=== PATIENT | female | born 1955 | race African-American/Black ===

== ENCOUNTER 2016-04-27 17:52 | Inpatient (IN) | payer OTHER ==
[~2016-04-27] VITALS: Ht 160 cm; Wt 110.7 kg
[~2016-04-27 17:52] MED LIST: ACETAMINOPHEN-1 EAC1 ORAL; APRESOLINE10 MG ORAL; ASPIR 8181 MG ORAL; ATIVAN0.5 MG ORAL; Atorvastatin ORAL; BENADRYL25 MG ORAL; BENAZEPRIL HCL10 MG ORAL; CARAFATE1 G1 ORAL; CLONIDINE 0.2M0.2 MG PO; CLONIDINE0.1 MG ORAL; COREG12.5 MG ORAL; CYMBALTA30 MG ORAL; FEOSOL325 MG ORAL; FISH OIL CAP1000 MG ORAL; GEMFIBROZIL600 MG ORAL; GLIPIZIDE5 MG ORAL; GLUCOPHAGE500 MG ORAL; IBUPROFEN600 MG ORAL; JANUVIA100 MG ORAL; LEVOTHYROXINE100 MCG ORAL; LEVOTHYROXINE112 MCG ORAL; LEVOTHYROXINE50 MCG ORAL; LEVOTHYROXINE75 MCG ORAL; LIDODERM700 M1 TDERMAL; LISINOPRIL20 MG PO; LOPRESSOR25 M1 ORAL; LORAZEPAM0.5 MG ORAL; LYRICA25 MG ORAL; MEDROL DOSEPAK4 MG ORAL; METFORMIN HCL500 M1 ORAL; METOPROLOL TAR100 M1 ORAL; MIRALAX17 G2 ORAL; NITROSTAT0.4 M1 SL; NORCO 10/3251 EA ORAL; NORVASC10 MG ORAL; PLAVIX75 MG ORAL; PRAVACHOL20 MG ORAL; PROTONIX40 MG ORAL; RESTORIL30 MG ORAL; SIMVASTATIN10 MG ORAL; SIMVASTATIN20 MG ORAL; SOMA350 MG PO; STARLIX120 MG ORAL; STARLIX60 MG ORAL; SYNTHROID25 MCG ORAL; SYNTHROID300 MCG ORAL; SYNTHROID50 MCG ORAL; ZANTAC150 MG ORAL
[2016-04-27 18:15] VITALS: BP 196/95
--- NOTE | 2016-04-27 19:20 | Emergency Room Report ---
History of Present Illness General Chief Complaint: General Complaint Source: Patient Present Illness HPI 61-year-old female presents ED evaluation. Patient states that she's been "blacking out" several times over the past month. Patient states she was seen in ER few weeks ago and was discharged. Patient states the blackouts or continuing. Patient states she had a episode today and was found on the ground. Upon arrival patient states she feels okay. There is any headaches, blurry vision, nausea or vomiting. Denies chest pain or shortness of breath. Denies fevers chills. Denies smoking or drug use. No other aggravating relieving factors. Denies any other associated symptoms Allergies: Coded Allergies: NO KNOWN ALLERGIES (Unverified Allergy, Unknown, 04/28/15) Patient History Past Medical History: asthma, COPD, CVA/TIA Past Surgical History: none Pertinent Family History: none Social History: Denies: alcohol use, drug use, smoking Now: No Immunizations: UTD Reviewed Nursing Documentation: PMH: Agreed, PSxH: Agreed Nursing Documentation-PMH Hx Cardiac Problems: Yes - hypothyroidism s/p removal of thyroid; [place] 2007, 2010 Hx Hypertension: Yes Hx Asthma: Yes Hx COPD: Yes Hx Diabetes: Yes Hx Cancer: No Hx Gastrointestinal Problems: Yes Hx Neurological Problems: Yes Hx Cerebrovascular Accident: Yes - 06/22/2014 Review of Systems All Other Systems: negative except mentioned in HPI Physical Exam Vital Signs Date Time Temp Pulse Resp B/P Pulse Ox O2 Delivery O2 Flow Rate FiO2 04/27/16 18:04 97.9 89 20 158/118 98 Room Air Sp02 EP Interpretation: reviewed, normal General Appearance: alert, GCS 15, non-toxic, obese Head: normocephalic, atraumatic Eyes: bilateral eye PERRL, bilateral eye normal inspection ENT: hearing grossly normal, normal pharynx, no angioedema, normal voice Neck: full range of motion, supple/symm/no masses Respiratory: chest non-tender, lungs clear, normal breath sounds, speaking full sentences Cardiovascular #1: regular rate, rhythm, no edema Cardiovascular #2: 2+ carotid (R), 2+ carotid (L), 2+ radial (R), 2+ radial (L) , 2+ dorsalis pedis (R), 2+ dorsalis pedis (L) Gastrointestinal: normal bowel sounds, non tender, soft, non-distended, no guarding, no rebound Rectal: deferred Genitourinary: normal inspection, no CVA tenderness Musculoskeletal: back normal, gait/station normal, normal range of motion, non- tender Neurologic: alert, oriented x3, responsive, motor strength/tone normal, sensory intact, speech normal Psychiatric: judgement/insight normal, memory normal, mood/affect normal, no suicidal/homicidal ideation Reflexes: 3+ bicep (R), 3+ bicep (L), 3+ tricep (R), 3+ tricep (L), 3+ knee (R) , 3+ knee (L) Skin: normal color, no rash, warm/dry, well hydrated Lymphatic: no adenopathy Medical Decision Making Diagnostic Impression: Primary Impression: Syncope Qualified Codes: R55 - Syncope and collapse Additional Impression: CHF exacerbation Qualified Codes: I50.9 - Heart failure, unspecified ER Course Hospital Course 61-year-old F presents ED s/p syncopal episode. Differential diagnoses include: [place]/unstable angina, arrythmia, dehydration, CVA/ TIA Clinical course Patient placed on stretcher. on front desk monitor. After initial history and physical I ordered labs, EKG, chest x-ray, IVFs, CT Brain labs reviewed- no leukocytosis, hemoglobin/hematocrit ok, electrolytes okay, troponins negative, BNP elevated EKG- NSR Chest x-ray- cardiomegaly CT brain-unremarkable lasix given Case discussed with Dr. stout and he agreed to accept the patient to his service for further care and support I. I feel this is a highly complex case requiring extensive working including EKG/Rhythm strip, Xray/CT/US, Blood/urine lab work, repeat exams while in ED, and administration of strong opiates/narcotics for pain control, admission to hospital or close patient follow up. Diagnosis - syncope, chf exacerbation admitted to telemetry in serious condition Labs Test 04/27/16 19:45 04/27/16 19:52 White Blood Count 10.0 K/UL (4.8-10.8) Red Blood Count 4.30 M/UL (4.20-5.40) Hemoglobin 11.2 G/DL (12.0-16.0) Hematocrit 37.3 % (37.0-47.0) Mean Corpuscular Volume 87 FL (80-99) Mean Corpuscular Hemoglobin 26.1 PG (27.0-31.0) Mean Corpuscular Hemoglobin Concent 30.1 G/DL (32.0-36.0) Red Cell Distribution Width 13.8 % (11.6-14.8) Platelet Count 368 K/UL (150-450) Mean Platelet Volume 7.1 FL (6.5-10.1) Neutrophils (%) (Auto) 60.5 % (45.0-75.0) Lymphocytes (%) (Auto) 28.6 % (20.0-45.0) Monocytes (%) (Auto) 7.2 % (1.0-10.0) Eosinophils (%) (Auto) 2.3 % (0.0-3.0) Basophils (%) (Auto) 1.4 % (0.0-2.0) Sodium Level 139 mEQ/L (135-145) Potassium Level 4.2 mEQ/L (3.4-4.9) Chloride Level 100 mEQ/L (98-107) Carbon Dioxide Level 24 mEQ/L (20-30) Anion Gap 15 (5-15) Blood Urea Nitrogen 11 mg/dL (7-23) Creatinine 0.6 mg/dL (0.5-0.9) Estimat Glomerular Filtration Rate > 60 mL/min (>60) Glucose Level 169 mg/dL (74-106) Calcium Level 9.2 mg/dL (8.6-10.2) Total Bilirubin < 0.2 mg/dL (0.0-1.2) Aspartate Amino Transf (AST/SGOT) 17 U/L (5-40) Alanine Aminotransferase (ALT/SGPT) 16 U/L (3-33) Alkaline Phosphatase 119 U/L (35-104) Total Creatine Kinase 55 U/L (26-140) Creatine Kinase MB 1.5 ng/mL (< 3.8) Creatine Kinase MB Relative Index 2.7 Troponin I < 0.30 ng/mL (<=0.30) Pro-B-Type Natriuretic Peptide 1270 pg/mL (0-125) Total Protein 7.0 g/dL (6.6-8.7) Albumin 3.4 g/dL (3.5-5.2) Globulin 3.6 g/dL Albumin/Globulin Ratio 0.9 (1.0-2.7) Urine Color Yellow Urine Appearance Clear Urine pH 6 (4.5-8.0) Urine Specific [place] 1.015 (1.005-1.035) Urine Protein 4+ (NEGATIVE) Urine Glucose (UA) 1+ (NEGATIVE) Urine Ketones Negative (NEGATIVE) Urine Occult Blood 1+ (NEGATIVE) Urine Nitrite Negative (NEGATIVE) Urine Bilirubin Negative (NEGATIVE) Urine Urobilinogen Normal MG/DL (0.0-1.0) Urine Leukocyte Esterase 2+ (NEGATIVE) Urine RBC 0-2 /HPF (0 - 2) Urine WBC 2-4 /HPF (0 - 2) Urine Squamous Epithelial Cells Occasional /LPF Urine Bacteria Many /HPF (NONE) EKG Diagnostic Results Rate: normal Rhythm: NSR ST Segments: no acute changes ASA given to the pt in ED: No Rhythm Strip Diag. Results EP Interpretation: yes Rhythm: NSR, no PVC's, no ectopy Chest X-Ray Diagnostic Results EP Interpretation: Yes Findings: no consolidation, no effusion, no pneumothorax, no acute cardiopulmonary disease, other - cardiomegaly Number of Views: 1 CT/MRI/US Diagnostic Results CT/MRI/US Diagnostic Results : Imaging Test Ordered: CT head Impression no acute process Last Vital Signs Date Time Temp Pulse Resp B/P Pulse Ox O2 Delivery O2 Flow Rate FiO2 04/27/16 18:04 97.9 89 20 158/118 98 Room Air Status: improved Disposition: ADMITTED INPATIENT Condition: Serious Referrals: [facility] (PCP) BONNIE LEYVA M.D. Apr 27, 2016 19:20
[2016-04-27 19:57] LABS: BASOPHILS % (AUTO) 1.4 % (0.0-2.0); EOSINOPHILS % (AUTO) 2.3 % (0.0-3.0); LYMPHOCYTES % (AUTO) 28.6 % (20.0-45.0); MEAN CORPUSCULAR HEMOGLOBIN 26.1 PG (27.0-31.0); MEAN CORPUSCULAR HGB CONC 30.1 G/DL (32.0-36.0); MEAN CORPUSCULAR VOLUME 87 FL (80-99); MEAN PLATELET VOLUME 7.1 FL (6.5-10.1); MONOCYTES % (AUTO) 7.2 % (1.0-10.0); NEUTROPHILS % (AUTO) 60.5 % (45.0-75.0); PLATELET COUNT 368 K/UL (150-450); RED CELL DISTRIBUTION WIDTH 13.8 % (11.6-14.8)
[2016-04-27 20:07] LABS: APPEARANCE,URINE CLEAR; KETONES,URINE NEGATIVE (NEGATIVE); LEUKOCYTE ESTERASE ,URINE 2+ (NEGATIVE); NITRITE,URINE NEGATIVE (NEGATIVE); PH,URINE 6 (4.5-8.0); PROTEIN,URINE 4+ (NEGATIVE); UROBILINOGEN,URINE NORMAL MG/DL (0.0-1.0)
[2016-04-27 20:10] VITALS: BP 168/94
[2016-04-27 20:16] LABS: ALANINE AMINOTRANSFERASE 16 U/L (3-33); ALBUMIN/GLOBULIN RATIO 0.9 (1.0-2.7); ANION GAP 15 (5-15); ASPARTATE AMINO TRANSFERASE 17 U/L (5-40); CALCIUM 9.2 mg/dL (8.6-10.2); CARBON DIOXIDE 24 mEQ/L (20-30); CHLORIDE 100 mEQ/L (98-107); CREATININE 0.6 mg/dL (0.5-0.9); GLOMERULAR FILTRATION RATE > 60 mL/min (>60); HEMOLYSIS 5; POTASSIUM 4.2 mEQ/L (3.4-4.9); SODIUM 139 mEQ/L (135-145); TROPONIN I < 0.30 ng/mL (<=0.30)
[2016-04-27 20:17] LABS: BACTERIA,URINE MANY /HPF; RBC,URINE 0-2 /HPF (0 - 2); SQUAMOUS EPITHELIAL CELL,UR OCCASIONAL /LPF (NONE/OCC)
[2016-04-27 20:27] LABS: CKMB 1.5 ng/mL (< 3.8)
[2016-04-27] MEDS ORDERED: DuoNeb 0.5-3(2.5)mg/3ml neb HHN PRN (21:45)
[2016-04-27] MEDS ORDERED: Miralax 17gm pkt ORAL PRN (21:45)
[2016-04-27] MEDS ORDERED: Diltiazem 25mg/5ml IV PRN (21:45)
[2016-04-27] MEDS ORDERED: Ketorolac 30mg Inj IV PRN (21:45)
[2016-04-27] MEDS ORDERED: Nitroglycerin Subl 0.4mg tab (Bottle Of 25) SL PRN ×2 (21:45)
[2016-04-27] MEDS ORDERED: Enalaprilat 2.5mg/2ml Inj IV PRN (21:45)
[2016-04-27 22:47] VITALS: BP 167/87
[2016-04-27] MEDS ORDERED: Heparin 5000 units/ml inj SUBQ SCH (23:00)
[2016-04-27 23:44] VITALS: BP 153/82
[2016-04-28] VITALS (7 sets, daily range): BP systolic 133–171; BP diastolic 80–91
[2016-04-28] MEDS: Morphine Sulfate 2mg/ml Inj IVP PRN ×5 (01:40→22:53)
[2016-04-28] MEDS: Heparin 5000 units/ml inj SUBQ SCH ×3 (06:28→22:45)
[2016-04-28] MEDS: NovoLOG Insulin Flexpen SUBQ SCH ×4 (06:29→21:37)
[2016-04-28 07:15] LABS: BASOPHILS % (AUTO) 1.7 % (0.0-2.0); EOSINOPHILS % (AUTO) 2.6 % (0.0-3.0); LYMPHOCYTES % (AUTO) 36.6 % (20.0-45.0); MEAN CORPUSCULAR HEMOGLOBIN 27.4 PG (27.0-31.0); MEAN CORPUSCULAR HGB CONC 31.1 G/DL (32.0-36.0); MEAN CORPUSCULAR VOLUME 88 FL (80-99); MEAN PLATELET VOLUME 7.2 FL (6.5-10.1); MONOCYTES % (AUTO) 7.3 % (1.0-10.0); NEUTROPHILS % (AUTO) 51.8 % (45.0-75.0); PLATELET COUNT 332 K/UL (150-450); PROTHROMBIN TIME 9.7 SEC (9.30-11.50); RED BLOOD COUNT 3.92 M/UL (4.20-5.40); RED CELL DISTRIBUTION WIDTH 13.4 % (11.6-14.8); WHITE BLOOD COUNT 9.1 K/UL (4.8-10.8)
[2016-04-28 07:34] LABS: TROPONIN I < 0.30 ng/mL (<=0.30)
[2016-04-28 07:36] LABS: CHOLESTEROL 199 mg/dL (< 200); CHOLESTEROL/HDL RATIO 4.3 (3.3-4.4); CRP QUANT < 0.3 mg/dL (< 0.5); HEMOLYSIS 2; LDL CHOLESTEROL (CALC.) 100 mg/dL (60-99)
[2016-04-28] MEDS: Sucralfate 1gm tab ORAL SCH ×4 (08:14→21:30)
[2016-04-28] MEDS: Lyrica 25mg cap ORAL SCH ×3 (08:16→18:17)
[2016-04-28] MEDS: HydrALAZINE 25mg tab ORAL SCH ×2 (08:17→21:30)
[2016-04-28] MEDS: Aspirin EC 81mg tab ORAL SCH (08:17)
[2016-04-28] MEDS ORDERED: Aspirin Baby 81mg ORAL SCH (09:00)
--- NOTE | 2016-04-28 10:41 | Diagnostic Imaging Report ---
Indications: SYNCOPE Technique: Continuous helical CT imaging of the brain was performed with automatic exposure control on a Siemens sensation [address] scanner. Axial and coronal images were reconstructed at 5 mm slice thickness and interval. CTDI volume(s): 70 mGy Total DLP: 1340 mGy-cm Findings: Comparison: 09/03/2015 Chronic microvascular ischemic changes in the bilateral screw periventricular white matter extending into the bilateral internal and external capsules, diffuse atrophy are unchanged.. No evidence of mass or hemorrhage, other attenuation abnormality, mass effect, midline shift, hydrocephalus or increased intracranial pressure. Bone window images are unremarkable. Visualized paranasal sinuses and mastoid air cells are clear. IMPRESSION: No evidence of acute intracranial pathology, unchanged Stable chronic changes as described. This correlates with Dr. Reis's preliminary report. The CT scanner at [facility] is accredited by the [employer] and the scans are performed using protocols designed to limit radiation exposure to as low as reasonably achievable to attain images of sufficient resolution adequate for diagnostic evaluation.
--- NOTE | 2016-04-28 16:04 | History and Physical ---
History of Present Illness General Date patient seen: Apr 28, 2016 Reason for Hospitalization: General Complaint Present Illness HPI 61-year-old female with multiple medical ans social issues presented to ED for CC of "blacking out" several times over the past month. Patient states she was seen in ER few weeks ago and was discharged. There is no complain of headaches, blurry vision, nausea or vomiting. Denies chest pain or shortness of breath. Denies fevers chills. Denies smoking or drug use. Patient admitted to evaluate her recurrent syncopal episode Allergies: Coded Allergies: NO KNOWN ALLERGIES (Unverified Allergy, Unknown, 04/28/15) Medication History Scheduled Amlodipine Besylate (Norvasc), 10 MG ORAL DAILY Aspirin* (Aspir 81*), 81 MG ORAL DAILY, (Reported) Benazepril Hcl* (Benazepril Hcl*), 40 MG ORAL DAILY Carisoprodol* (Soma*), 350 MG PO THREE TIMES A DAY, (Reported) Clonidine HCl (Clonidine HCl), 0.2 MG PO TID, (Reported) Clopidogrel Bisulfate* (Plavix*), 75 MG ORAL DAILY, (Reported) Duloxetine Hcl* (Cymbalta*), 30 MG ORAL DAILY, (Reported) Ferrous Sulfate (Feosol), 325 MG ORAL BID Fish Oil (Fish Oil 1,000 mg Capsule), 1,000 MG ORAL DAILY Glipizide* (Glipizide*), 5 MG ORAL BIDAC Hydralazine HCl (Hydralazine HCl), 25 MG ORAL BID Levothyroxine Sodium (Synthroid), 50 MCG ORAL DAILY, (Reported) Levothyroxine Sodium* (Levothyroxine Sodium*), 100 MCG ORAL DAILY@0630 Levothyroxine Sodium* (Levothyroxine Sodium*), 112 MCG ORAL DAILY@0630 Lidocaine (Lidoderm), 1 PATCH TDERMAL DAILY Lorazepam* (Lorazepam*), 0.5 MG ORAL EVERY 6 HOURS, (Reported) Metformin Hcl* (Glucophage*), 500 MG ORAL TID Metformin Hcl* (Metformin Hcl*), 500 MG ORAL TWICE A DAY, (Reported) Metoprolol Tartrate (Metoprolol Tartrate), 25 MG ORAL EVERY 12 HOURS, (Reported) Metoprolol Tartrate (Metoprolol Tartrate), 50 MG ORAL EVERY 12 HOURS Nateglinide* (Starlix*), 60 MG ORAL THREE TIMES A DAY Pantoprazole* (Protonix*), 40 MG ORAL DAILY, (Reported) Pregabalin (Lyrica), 25 MG ORAL THREE TIMES A DAY Simvastatin (Zocor), 10 MG ORAL BEDTIME, (Reported) Sucralfate* (Carafate*), 1 GM ORAL FOUR TIMES A DAY Temazepam (Restoril*), 30 MG ORAL BEDTIME, (Reported) [Atorvastatin], 40 MG ORAL BEDTIME Scheduled PRN Diphenhydramine Hcl* (Benadryl*), 25 MG ORAL Q6H PRN for Itching Hydrocodone/Acetaminophen (Hydrocodon-Acetaminophn 10-325), 1 TAB ORAL Q4H PRN for For Pain, (Reported) Lorazepam* (Ativan*), 2 MG ORAL THREE TIMES A DAY PRN for For Anxiety, (Reported ) Nitroglycerin (Nitrostat), 0.4 MG SL .Q5M X 3 DOSES PRN for Prn Chest Pain Discontinued Medications Acetaminophen With Codeine (T#3) (Tylenol #3 Tab*), 1 TAB ORAL EVERY 6 HOURS PRN for For Pain Discontinued Reason: Therapy completed Benazepril Hcl* (Benazepril Hcl*), Unknown Dose ORAL DAILY, (Reported) Discontinued Reason: Therapy completed Ibuprofen* (Motrin*), 600 MG ORAL THREE TIMES A DAY Discontinued Reason: Therapy completed Levothyroxine Sodium (Synthroid), 500 MCG ORAL DAILY, (Reported) Discontinued Reason: Therapy completed Temazepam (Restoril*), 30 MG ORAL BEDTIME, (Reported) Discontinued Reason: Therapy completed Patient History Healthcare decision maker Resuscitation status Full Code Advanced Directive on File Past Medical/Surgical History Past Medical/Surgical History: (1) Diabetic nephropathy (2) Hypothyroidism (3) Cerebral vascular disease (4) Diabetes Review of Systems Constitutional: Reports: weakness Cardiovascular: Reports: chest pain All Other Systems: negative except mentioned in HPI Physical Exam General Appearance: WD/WN, no apparent distress Lines, tubes and drains: peripheral, central line HEENT: normocephalic, atraumatic Neck: non-tender, supple Respiratory/Chest: chest wall non-tender, lungs clear Cardiovascular/Chest: normal peripheral pulses, normal rate Abdomen: normal bowel sounds, non tender Genitourinary/Rectal: normal genital exam Extremities: normal range of motion Skin Exam: normal pigmentation Last 24 Hour Vital Signs Date Time Temp Pulse Resp B/P Pulse Ox O2 Delivery O2 Flow Rate FiO2 04/28/16 14:16 97.0 04/28/16 14:16 97.0 04/28/16 12:38 101 133/80 04/28/16 11:54 97.0 106 18 171/91 98 Room Air 04/28/16 09:50 105 20 Room Air 04/28/16 08:17 155/80 04/28/16 08:17 109 155/80 04/28/16 08:16 97.0 109 20 155/80 97 Room Air 04/28/16 08:15 155/80 04/28/16 08:00 107 04/28/16 04:30 98.0 96 20 158/80 100 04/28/16 04:00 99 04/28/16 01:00 98.2 89 15 161/82 100 Room Air 04/28/16 00:45 98.2 89 15 157/89 100 Room Air 04/28/16 00:45 98.2 89 15 157/89 100 Room Air 04/28/16 00:00 91 04/27/16 23:44 98.1 91 15 153/82 100 Room Air 04/27/16 23:33 90 18 Room Air 04/27/16 22:47 94 16 167/87 100 Room Air 04/27/16 20:10 86 11 168/94 100 Room Air 04/27/16 18:15 97.7 91 15 196/95 100 Room Air 04/27/16 18:04 97.9 89 20 158/118 98 Room Air Intake and Output 04/27/16 04/28/16 19:00 07:00 Output Total 2500 ml Balance -2500 ml Output Urine Total 2500 ml # Voids 1 Laboratory Tests Test 04/27/16 19:45 04/27/16 19:52 04/28/16 06:20 White Blood Count 10.0 K/UL (4.8-10.8) 9.1 K/UL (4.8-10.8) Red Blood Count 4.30 M/UL (4.20-5.40) 3.92 M/UL (4.20-5.40) L Hemoglobin 11.2 G/DL (12.0-16.0) L 10.7 G/DL (12.0-16.0) L Hematocrit 37.3 % (37.0-47.0) 34.5 % (37.0-47.0) L Mean Corpuscular Volume 87 FL (80-99) 88 FL (80-99) Mean Corpuscular Hemoglobin 26.1 PG (27.0-31.0) L 27.4 PG (27.0-31.0) Mean Corpuscular Hemoglobin Concent 30.1 G/DL (32.0-36.0) L 31.1 G/DL (32.0-36.0) L Red Cell Distribution Width 13.8 % (11.6-14.8) 13.4 % (11.6-14.8) Platelet Count 368 K/UL (150-450) 332 K/UL (150-450) Mean Platelet Volume 7.1 FL (6.5-10.1) 7.2 FL (6.5-10.1) Neutrophils (%) (Auto) 60.5 % (45.0-75.0) 51.8 % (45.0-75.0) Lymphocytes (%) (Auto) 28.6 % (20.0-45.0) 36.6 % (20.0-45.0) Monocytes (%) (Auto) 7.2 % (1.0-10.0) 7.3 % (1.0-10.0) Eosinophils (%) (Auto) 2.3 % (0.0-3.0) 2.6 % (0.0-3.0) Basophils (%) (Auto) 1.4 % (0.0-2.0) 1.7 % (0.0-2.0) Sodium Level 139 mEQ/L (135-145) Potassium Level 4.2 mEQ/L (3.4-4.9) Chloride Level 100 mEQ/L (98-107) Carbon Dioxide Level 24 mEQ/L (20-30) Anion Gap 15 (5-15) Blood Urea Nitrogen 11 mg/dL (7-23) Creatinine 0.6 mg/dL (0.5-0.9) Estimat Glomerular Filtration Rate > 60 mL/min (>60) Glucose Level 169 mg/dL (74-106) H Calcium Level 9.2 mg/dL (8.6-10.2) Total Bilirubin < 0.2 mg/dL (0.0-1.2) Aspartate Amino Transf (AST/SGOT) 17 U/L (5-40) Alanine Aminotransferase (ALT/SGPT) 16 U/L (3-33) Alkaline Phosphatase 119 U/L (35-104) H Total Creatine Kinase 55 U/L (26-140) Creatine Kinase MB 1.5 ng/mL (< 3.8) Creatine Kinase MB Relative Index 2.7 Troponin I Pending < 0.30 ng/mL (<=0.30) Pro-B-Type Natriuretic Peptide 1270 pg/mL (0-125) H Total Protein 7.0 g/dL (6.6-8.7) Albumin 3.4 g/dL (3.5-5.2) L Globulin 3.6 g/dL Albumin/Globulin Ratio 0.9 (1.0-2.7) L Urine Color Yellow Urine Appearance Clear Urine pH 6 (4.5-8.0) Urine Specific [place] 1.015 (1.005-1.035) Urine Protein 4+ (NEGATIVE) H Urine Glucose (UA) 1+ (NEGATIVE) H Urine Ketones Negative (NEGATIVE) Urine Occult Blood 1+ (NEGATIVE) H Urine Nitrite Negative (NEGATIVE) Urine Bilirubin Negative (NEGATIVE) Urine Urobilinogen Normal MG/DL (0.0-1.0) Urine Leukocyte Esterase 2+ (NEGATIVE) H Urine RBC 0-2 /HPF (0 - 2) Urine WBC 2-4 /HPF (0 - 2) Urine Squamous Epithelial Cells Occasional /LPF Urine Bacteria Many /HPF (NONE) H Prothrombin Time 9.7 SEC (9.30-11.50) Prothromb Time International Ratio 1.0 (0.9-1.1) Activated Partial Thromboplast Time 27 SEC (23-33) C-Reactive Protein, Quantitative < 0.3 mg/dL (< 0.5) Triglycerides Level 264 mg/dL (< 150) H Cholesterol Level 199 mg/dL (< 200) LDL Cholesterol 100 mg/dL (60-99) H HDL Cholesterol 46 mg/dL (> 60) Cholesterol/HDL Ratio 4.3 (3.3-4.4) Thyroid Stimulating Hormone (TSH) 4.280 uIU/mL (0.300-4.500) Microbiology Date/Time Source Procedure Growth Status 04/27/16 19:52 Urine,Clean Catch Urine Culture - Preliminary Resulted Height (Feet): 5 Height (Inches): 3.00 Weight (Pounds): 221 Medications Current Medications Medications (Trade) Dose Ordered Sig/Sky Route PRN Reason Start Time Stop Time Status Last Admin Dose Admin Acetaminophen (Tylenol) 650 mg Q4H PRN ORAL FEVER 04/27/16 21:45 05/27/16 21:44 Albuterol/ Ipratropium (DuoNeb 0.5-3(2.5)mg/3ml) 3 ml Q4H PRN HHN Shortness of Breath 04/27/16 21:45 05/02/16 21:44 Amlodipine Besylate (Norvasc) 10 mg DAILY ORAL 04/28/16 09:00 05/28/16 08:59 04/28/16 08:17 Aspirin (Ecotrin) 81 mg DAILY ORAL 04/28/16 09:00 05/28/16 08:59 04/28/16 08:17 Benazepril HCl (Lotensin) 40 mg DAILY ORAL 04/28/16 09:00 05/28/16 08:59 04/28/16 08:15 Clopidogrel Bisulfate (Plavix) 75 mg DAILY ORAL 04/28/16 09:00 05/28/16 08:59 04/28/16 08:15 Dextrose (Dextrose 50%) STAT PRN IV Hypoglycemia 04/27/16 21:45 05/27/16 21:44 Diltiazem HCl (Cardizem) 10 mg Q1H PRN IV heart rate more than 120, 04/27/16 21:45 05/27/16 21:44 Duloxetine HCl (Cymbalta) 60 mg DAILY ORAL 04/29/16 09:00 05/29/16 08:59 Enalaprilat (Vasotec) 2.5 mg Q6H PRN IV sbp more than 160 04/27/16 21:45 05/27/16 21:44 Ferrous Sulfate (Feosol) 325 mg BID ORAL 04/28/16 09:00 05/28/16 08:59 04/28/16 08:15 Gabapentin (Neurontin) 200 mg THREE TIMES A DAY ORAL 04/28/16 18:00 05/28/16 17:59 Heparin Sodium (Porcine) (Heparin 5000 units/ml) 5,000 units EVERY 8 HOURS SUBQ 04/28/16 06:00 05/28/16 05:59 04/28/16 13:18 Hydralazine HCl (Apresoline) 25 mg BID@0900,2100 ORAL 04/28/16 09:00 05/28/16 08:59 04/28/16 08:17 Insulin Aspart (NovoLOG) BEFORE MEALS AND HS SUBQ 04/28/16 06:30 05/28/16 06:29 04/28/16 11:30 Levothyroxine Sodium (Synthroid) 50 mcg DAILY@0630 ORAL 04/28/16 06:30 05/28/16 06:29 04/28/16 06:25 Morphine Sulfate (Morphine Sulfate) 2 mg Q4H PRN IVP severe Pain (Pain Scale 7-10) 04/27/16 21:45 05/04/16 21:44 04/28/16 13:49 Nitroglycerin (Ntg) 0.4 mg Q5M PRN SL Prn Chest Pain 04/27/16 21:45 05/27/16 21:44 Ondansetron HCl (Zofran) 4 mg Q6H PRN IVP Nausea & Vomiting 04/27/16 21:45 05/27/16 21:44 Pantoprazole (Protonix) 40 mg DAILY ORAL 04/28/16 09:00 05/28/16 08:59 04/28/16 08:15 Polyethylene Glycol (Miralax) 17 gm DAILYPRN PRN ORAL Constipation 04/27/16 21:45 05/27/16 21:44 Pregabalin (Lyrica) 25 mg THREE TIMES A DAY ORAL 04/28/16 09:00 05/28/16 08:59 04/28/16 13:17 Sucralfate (Carafate) 1 gm FOUR TIMES A DAY ORAL 04/28/16 09:00 05/28/16 08:59 04/28/16 13:16 Temazepam (Restoril) 15 mg HSPRN PRN ORAL Insomnia 04/27/16 21:45 05/04/16 21:44 04/28/16 01:40 Assessment/Plan Problem List: (1) Acute encephalopathy ICD Codes: G93.40 - Encephalopathy, unspecified SNOMED: 2161111 (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 ALMAZ HANNAH Apr 28, 2016 16:04
--- NOTE | 2016-04-28 20:27 | Consultation ---
Consult Note Consult Note ID Dic # [id number] SRUTHI TORIBIO M.D. Apr 28, 2016 20:27
--- NOTE | 2016-04-28 20:46 | Cardiology Report ---
APPROVED REPORT EXAM: Two-dimensional and M-mode echocardiogram with Doppler and color Doppler. INDICATION Left Ventricular Function M-Mode DIMENSIONS IVSd2.7 (0.7-1.1cm)Left Atrium (MM)3.3 (1.6-4.0cm) LVDd3.0 (3.5-5.6cm)Aortic Root3.6 (2.0-3.7cm) PWd1.4 (0.7-1.1cm)Aortic Cusp Exc.1.5 (1.5-2.0cm) LVDs2.4 (2.5-4.0cm) PWs1.4 cm Technically difficult study due to poor acoustic windows. Study quality precludes accurate assessment of regional wall motion. Normal left ventricular chamber size. Hyperdynamic systolic function. Left ventricular ejection fraction estimated to be 65-70%. Significant left ventricular hypertrophy. Possible left plural effusion. All other cardiac chamber sizes are within normal limits. Mild focal aortic valve sclerosis with adequate cusp excursion. Mildly thickened mitral valve leaflets with normal excursion. Mild mitral annulus and aortic root calcification. Pulmonic valve not well visualized. Normal tricuspid valve structure. A color flow and spectral Doppler study was performed and revealed: Trace aortic insufficiency. Trace mitral regurgitation. Mitral inflow indicate normal left ventricular diastolic function. Trace tricuspid regurgitation. Tricuspid systolic velocities suggests peak right ventricular systolic pressure of 6 mmHg.
--- NOTE | 2016-04-28 23:48 | Consultation ---
DATE OF CONSULTATION: INFECTIOUS DISEASE CONSULTATION REFERRING PHYSICIAN: Jd Ramirez M.D. REASON FOR CONSULTATION: Evaluation of the patient for possible sepsis. HISTORY OF PRESENT ILLNESS: The patient is a 61-year-old female with multiple medical problems, who came to the hospital after the patient had a fall and possible loss of consciousness for a short period. Infectious Disease consultation has been requested for evaluation of patient for possible sepsis and the fact of the patient's presentation. The patient denies of having fever, chills, or cough. PAST MEDICAL HISTORY: 1. History of diabetes. 2. History of CAD. 3. History of CVA. 4. History of COPD. 5. Hypertension. 6. Diverticulosis. 7. History of ESBL E. coli urinary tract infection. 8. History of laparoscopic cholecystectomy. ALLERGIES: No known drug allergies. MEDICATIONS: The patient off of antibiotics. REVIEW OF SYSTEMS: A 10-point review was done and except what is mentioned has been negative.HEENT: No recent change in vision or hearing. Pulmonary: No cough or shortness of breath. Cardiovascular: No chest pain or palpitation. The patient had a syncopal episode as mentioned above. Gastrointestinal: No nausea or vomiting. Musculoskeletal: The patient had a right foot pain. PHYSICAL EXAMINATION: VITAL SIGNS: Temperature 97.5 degrees, blood pressure 153/80, pulse 98, and respiratory rate 18. HEENT: Mild pale conjunctivae. No icterus. NECK: No lymphadenopathy. CHEST: Coarse breathing sounds. HEART: S1 and S2. ABDOMEN: Soft and nontender. EXTREMITIES: No cyanosis at this time. The patient has of the right hip. NEUROLOGIC: Awake and alert. LABORATORY DATA: White blood cell 9.1, hemoglobin 10.7, and platelets 232,000. UA unremarkable. BUN is 11 and creatinine 0.6. ALT and AST are unremarkable. Alkaline phosphatase is 119. Urine culture is pending. CT of the head, no acute process. ASSESSMENT: The patient is a 61-year-old female with multiple episodes of syncope. At this time, the patient does not appear to have any infectious process contributing to the patient's presentation. The patient is afebrile with no leukocytosis and no symptoms to suggest infectious process. PLAN: 1. We will monitor the patient off of antibiotics. 2. Monitor white blood cells. 3. Monitor CBC and BMP. 4. Monitor cultures. 5. Based on the patient's clinical course and labs, we will do further recommendations. Thank you, Dr. Ramirez, for allowing me to participate in the care of this patient. I will follow the patient with you during this hospitalization. Bob Oconnell M.D. DR: JANETTE JOB#: [id number] CC:
[2016-04-29 00:25] VITALS: BP 128/69
[2016-04-29 04:30] VITALS: BP 132/85
[2016-04-29] MEDS: Morphine Sulfate 2mg/ml Inj IVP PRN ×2 (06:33→12:03)
[2016-04-29] MEDS: Heparin 5000 units/ml inj SUBQ SCH ×3 (06:35→21:30)
[2016-04-29] MEDS: NovoLOG Insulin Flexpen SUBQ SCH ×4 (06:36→21:29)
[2016-04-29 07:23] LABS: TROPONIN I < 0.30 ng/mL (<=0.30)
[2016-04-29 08:51] VITALS: BP 139/85
[2016-04-29] MEDS: Aspirin EC 81mg tab ORAL SCH (08:59)
[2016-04-29] MEDS: HydrALAZINE 25mg tab ORAL SCH ×2 (08:59→21:30)
[2016-04-29] MEDS: Sucralfate 1gm tab ORAL SCH ×4 (08:59→21:29)
[2016-04-29] MEDS: Lyrica 25mg cap ORAL SCH ×3 (09:00→18:49)
[2016-04-29] MEDS ORDERED: DULoxetine 30mg cap ORAL SCH (09:00)
[2016-04-29 12:00] VITALS: BP 151/90
--- NOTE | 2016-04-29 12:50 | Infectious Diseases Prog Note ---
Assessment/Plan Assessment/Plan A: The patient is a 61-year-old female with no evidence of sepsis no evidence of UTI UCX: GNR and Strp ( Colonizer ) no dysuria , UA : N o sig WBC SP loss of consciousness Diabetes History of CAD. History of CVA. History of COPD. Hypertension. Diverticulosis. History of ESBL E. coli urinary tract infection. History of laparoscopic cholecystectomy. PLAN: 1. We will monitor the patient off of antibiotics. 2. Monitor white blood cells. 3. Monitor CBC and BMP. 4. Monitor cultures Subjective Constitutional: Denies: anorexia, chills, drenching sweats, fatigue, fever, no symptoms, other Allergies: Coded Allergies: NO KNOWN ALLERGIES (Unverified Allergy, Unknown, 04/28/15) Subjective feels dizzy all the time , no dysuria Objective Vital Signs Last 24 Hour Vital Signs Date Time Temp Pulse Resp B/P Pulse Ox O2 Delivery O2 Flow Rate FiO2 04/29/16 09:00 139/85 04/29/16 08:59 139/85 04/29/16 08:59 106 139/85 04/29/16 08:51 97.9 106 18 139/85 95 Room Air 04/29/16 08:00 104 04/29/16 07:00 106 20 Room Air 21 04/29/16 04:30 98.0 107 20 132/85 94 Room Air 04/29/16 04:00 106 04/29/16 00:25 98.4 106 20 128/69 100 Room Air 04/29/16 00:00 101 04/28/16 23:23 97.5 04/28/16 21:38 98 20 Room Air 04/28/16 21:30 153/82 04/28/16 20:00 95 04/28/16 19:17 97.5 04/28/16 19:16 97.5 04/28/16 17:00 91 96 94 04/28/16 16:00 88 04/28/16 16:00 97.5 98 20 153/82 99 Room Air Height (Feet): 5 Height (Inches): 3.00 Weight (Pounds): 221 HEENT: anicteric Respiratory/Chest: chest wall non-tender Cardiovascular: normal rate Abdomen: soft, non tender Microbiology Date/Time Source Procedure Growth Status 04/27/16 19:52 Urine,Clean Catch Urine Culture - Preliminary Gram Negative Bacillus 1 Streptococcus Species Resulted Laboratory Tests Test 04/29/16 06:10 Hemoglobin A1c 7.0 % (< 6.0) H Iron Level 50 ug/dL (37-145) Total Iron Binding Capacity 268 ug/dL (250-400) Percent Iron Saturation 19 % (15-50) Unsaturated Iron Binding 218 ug/dL (112-346) Ferritin 31 ng/mL (13-150) Troponin I < 0.30 ng/mL (<=0.30) Current Medications Medications (Trade) Dose Ordered Sig/Sky Route PRN Reason Start Time Stop Time Status Last Admin Dose Admin Acetaminophen (Tylenol) 650 mg Q4H PRN ORAL FEVER 04/27/16 21:45 05/27/16 21:44 Albuterol/ Ipratropium (DuoNeb 0.5-3(2.5)mg/3ml) 3 ml Q4H PRN HHN Shortness of Breath 04/27/16 21:45 05/02/16 21:44 Amlodipine Besylate (Norvasc) 10 mg DAILY ORAL 04/28/16 09:00 05/28/16 08:59 04/29/16 08:59 Aspirin (Ecotrin) 81 mg DAILY ORAL 04/28/16 09:00 05/28/16 08:59 04/29/16 08:59 Benazepril HCl (Lotensin) 40 mg DAILY ORAL 04/28/16 09:00 05/28/16 08:59 04/29/16 09:00 Clopidogrel Bisulfate (Plavix) 75 mg DAILY ORAL 04/28/16 09:00 05/28/16 08:59 04/29/16 09:00 Dextrose (Dextrose 50%) STAT PRN IV Hypoglycemia 04/27/16 21:45 05/27/16 21:44 Diltiazem HCl (Cardizem) 10 mg Q1H PRN IV heart rate more than 120, 04/27/16 21:45 05/27/16 21:44 Duloxetine HCl (Cymbalta) 60 mg DAILY ORAL 04/29/16 09:00 05/29/16 08:59 04/29/16 09:00 Enalaprilat (Vasotec) 2.5 mg Q6H PRN IV sbp more than 160 04/27/16 21:45 05/27/16 21:44 Ferrous Sulfate (Feosol) 325 mg BID ORAL 04/28/16 09:00 05/28/16 08:59 04/29/16 08:59 Gabapentin (Neurontin) 200 mg THREE TIMES A DAY ORAL 04/28/16 18:00 05/28/16 17:59 04/29/16 12:02 Heparin Sodium (Porcine) (Heparin 5000 units/ml) 5,000 units EVERY 8 HOURS SUBQ 04/28/16 06:00 05/28/16 05:59 04/29/16 06:35 Hydralazine HCl (Apresoline) 25 mg BID@0900,2100 ORAL 04/28/16 09:00 05/28/16 08:59 04/29/16 08:59 Insulin Aspart (NovoLOG) BEFORE MEALS AND HS SUBQ 04/28/16 06:30 05/28/16 06:29 04/29/16 11:34 Levothyroxine Sodium (Synthroid) 50 mcg DAILY@0630 ORAL 04/28/16 06:30 05/28/16 06:29 04/29/16 06:33 Morphine Sulfate (Morphine Sulfate) 2 mg Q4H PRN IVP severe Pain (Pain Scale 7-10) 04/27/16 21:45 05/04/16 21:44 04/29/16 12:03 Nitroglycerin (Ntg) 0.4 mg Q5M PRN SL Prn Chest Pain 04/27/16 21:45 05/27/16 21:44 Ondansetron HCl (Zofran) 4 mg Q6H PRN IVP Nausea & Vomiting 04/27/16 21:45 05/27/16 21:44 Pantoprazole (Protonix) 40 mg DAILY ORAL 04/28/16 09:00 05/28/16 08:59 04/29/16 08:59 Polyethylene Glycol (Miralax) 17 gm DAILYPRN PRN ORAL Constipation 04/27/16 21:45 05/27/16 21:44 Pregabalin (Lyrica) 25 mg THREE TIMES A DAY ORAL 04/28/16 09:00 05/28/16 08:59 04/29/16 12:03 Sucralfate (Carafate) 1 gm FOUR TIMES A DAY ORAL 04/28/16 09:00 05/28/16 08:59 04/29/16 12:03 Temazepam (Restoril) 15 mg HSPRN PRN ORAL Insomnia 04/27/16 21:45 05/04/16 21:44 04/28/16 22:49 SRUTHI TORIBIO M.D. Apr 29, 2016 12:50
[2016-04-29] MEDS ORDERED: HYDROmorphone 2 MG in NS 50 ML IVPB PRN ×2 (14:00→14:15)
--- NOTE | 2016-04-29 15:31 | Pulmonology Progress Note ---
Assessment/Plan Problems: (1) Acute encephalopathy (2) Thalamic pain syndrome (3) Multiple joint pain (4) Lumbar radiculopathy (5) Syncope Assessment/Plan improvng pt/ot pain management med/surg ID evaluation appreciated. pt will need placement Subjective ROS Limited/Unobtainable: No Constitutional: Reports: no symptoms HEENT: Repors: no symptoms Allergies: Coded Allergies: NO KNOWN ALLERGIES (Unverified Allergy, Unknown, 04/28/15) Objective Last 24 Hour Vital Signs Date Time Temp Pulse Resp B/P Pulse Ox O2 Delivery O2 Flow Rate FiO2 04/29/16 12:00 97.7 105 18 151/90 100 Room Air 04/29/16 12:00 98 04/29/16 09:00 105 107 04/29/16 09:00 139/85 04/29/16 08:59 139/85 04/29/16 08:59 106 139/85 04/29/16 08:51 97.9 106 18 139/85 95 Room Air 04/29/16 08:00 104 04/29/16 07:00 106 20 Room Air 21 04/29/16 04:30 98.0 107 20 132/85 94 Room Air 04/29/16 04:00 106 04/29/16 00:25 98.4 106 20 128/69 100 Room Air 04/29/16 00:00 101 04/28/16 23:23 97.5 04/28/16 21:38 98 20 Room Air 04/28/16 21:30 153/82 04/28/16 20:00 95 04/28/16 19:17 97.5 04/28/16 19:16 97.5 04/28/16 17:00 91 96 94 04/28/16 16:00 88 04/28/16 16:00 97.5 98 20 153/82 99 Room Air Intake and Output 04/28/16 04/29/16 19:00 07:00 Intake Total 120 ml Output Total 500 ml 700 ml Balance -380 ml -700 ml Intake Oral 120 ml Output Urine Total 500 ml 700 ml General Appearance: WD/WN HEENT: normocephalic, atraumatic Respiratory/Chest: chest wall non-tender, lungs clear Cardiovascular: normal peripheral pulses, normal rate Abdomen: normal bowel sounds, soft, non tender 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 Lymphatic: no neck adenopathy Microbiology Date/Time Source Procedure Growth Status 04/27/16 19:52 Urine,Clean Catch Urine Culture - Preliminary Gram Negative Bacillus 1 Streptococcus Species Resulted Laboratory Tests 04/29/16 06:10: Hemoglobin A1c 7.0H, Iron Level 50, Total Iron Binding Capacity 268, Percent Iron Saturation 19, Unsaturated Iron Binding 218, Ferritin 31, Troponin I < 0.30 Current Medications Medications (Trade) Dose Ordered Sig/Sky Route PRN Reason Start Time Stop Time Status Last Admin Dose Admin Acetaminophen (Tylenol) 650 mg Q4H PRN ORAL FEVER 04/27/16 21:45 05/27/16 21:44 Albuterol/ Ipratropium (DuoNeb 0.5-3(2.5)mg/3ml) 3 ml Q4H PRN HHN Shortness of Breath 04/27/16 21:45 05/02/16 21:44 Amlodipine Besylate (Norvasc) 10 mg DAILY ORAL 04/28/16 09:00 05/28/16 08:59 04/29/16 08:59 Aspirin (Ecotrin) 81 mg DAILY ORAL 04/28/16 09:00 05/28/16 08:59 04/29/16 08:59 Benazepril HCl (Lotensin) 40 mg DAILY ORAL 04/28/16 09:00 05/28/16 08:59 04/29/16 09:00 Clopidogrel Bisulfate (Plavix) 75 mg DAILY ORAL 04/28/16 09:00 05/28/16 08:59 04/29/16 09:00 Dextrose (Dextrose 50%) STAT PRN IV Hypoglycemia 04/27/16 21:45 05/27/16 21:44 Diltiazem HCl (Cardizem) 10 mg Q1H PRN IV heart rate more than 120, 04/27/16 21:45 05/27/16 21:44 Duloxetine HCl 60 mg 60 mg DAILY ORAL 04/29/16 09:00 05/29/16 08:59 04/29/16 09:00 Enalaprilat (Vasotec) 2.5 mg Q6H PRN IV sbp more than 160 04/27/16 21:45 05/27/16 21:44 Ferrous Sulfate (Feosol) 325 mg BID ORAL 04/28/16 09:00 05/28/16 08:59 04/29/16 08:59 Gabapentin (Neurontin) 200 mg THREE TIMES A DAY ORAL 04/28/16 18:00 05/28/16 17:59 04/29/16 12:02 Heparin Sodium (Porcine) (Heparin 5000 units/ml) 5,000 units EVERY 8 HOURS SUBQ 04/28/16 06:00 05/28/16 05:59 04/29/16 13:29 Hydralazine HCl (Apresoline) 25 mg BID@0900,2100 ORAL 04/28/16 09:00 05/28/16 08:59 04/29/16 08:59 Hydromorphone HCl/ Sodium Chloride (Dilaudid/Sodium Chloride 50ml bag) 51 ml @ 200 mls/hr Q4H PRN IVPB severe pain 04/29/16 14:15 05/06/16 14:14 Insulin Aspart (NovoLOG) BEFORE MEALS AND HS SUBQ 04/28/16 06:30 05/28/16 06:29 04/29/16 11:34 Levothyroxine Sodium (Synthroid) 50 mcg DAILY@0630 ORAL 04/28/16 06:30 05/28/16 06:29 04/29/16 06:33 Nitroglycerin (Ntg) 0.4 mg Q5M PRN SL Prn Chest Pain 04/27/16 21:45 05/27/16 21:44 Ondansetron HCl (Zofran) 4 mg Q6H PRN IVP Nausea & Vomiting 04/27/16 21:45 05/27/16 21:44 Pantoprazole (Protonix) 40 mg DAILY ORAL 04/28/16 09:00 05/28/16 08:59 04/29/16 08:59 Polyethylene Glycol (Miralax) 17 gm DAILYPRN PRN ORAL Constipation 04/27/16 21:45 05/27/16 21:44 Pregabalin (Lyrica) 25 mg THREE TIMES A DAY ORAL 04/28/16 09:00 05/28/16 08:59 04/29/16 12:03 Sucralfate (Carafate) 1 gm FOUR TIMES A DAY ORAL 04/28/16 09:00 05/28/16 08:59 04/29/16 12:03 Temazepam (Restoril) 15 mg HSPRN PRN ORAL Insomnia 04/27/16 21:45 05/04/16 21:44 04/28/16 22:49 ALMAZ HANNAH Apr 29, 2016 15:31
[2016-04-29 16:00] VITALS: BP 134/91
[2016-04-29] MEDS ORDERED: Nitroglycerin Subl 0.4mg tab (Bottle Of 25) SL PRN (17:35)
[2016-04-29] MEDS ORDERED: DuoNeb 0.5-3(2.5)mg/3ml neb HHN PRN (17:45)
[2016-04-29] MEDS ORDERED: Diltiazem 25mg/5ml IV PRN (17:45)
[2016-04-29] MEDS ORDERED: Miralax 17gm pkt ORAL PRN (19:00)
[2016-04-29 20:01] VITALS: BP 145/90
[2016-04-29] MEDS: HYDROmorphone 2 MG in NS 50 ML IVPB PRN (21:28)
[2016-04-29] MEDS ORDERED: Enalaprilat 2.5mg/2ml Inj IV PRN (21:45)
[2016-04-30] VITALS: BP 155/90
[2016-04-30] MEDS: HYDROmorphone 2 MG in NS 50 ML IVPB PRN ×4 (02:20→21:04)
[2016-04-30 04:00] VITALS: BP 144/84
[2016-04-30] MEDS: NovoLOG Insulin Flexpen SUBQ SCH ×4 (06:53→20:54)
[2016-04-30] MEDS: Heparin 5000 units/ml inj SUBQ SCH ×3 (06:53→21:01)
[2016-04-30 08:02] VITALS: BP 151/82
[2016-04-30] MEDS: Aspirin EC 81mg tab ORAL SCH (09:59)
[2016-04-30] MEDS: HydrALAZINE 25mg tab ORAL SCH ×2 (10:01→21:00)
[2016-04-30] MEDS: DULoxetine 30mg cap ORAL SCH (10:01)
[2016-04-30] MEDS: Lyrica 25mg cap ORAL SCH ×3 (10:06→17:09)
[2016-04-30] MEDS: Sucralfate 1gm tab ORAL SCH ×4 (10:08→21:02)
[2016-04-30 11:49] VITALS: BP 155/89
--- NOTE | 2016-04-30 15:20 | Pulmonology Progress Note ---
Assessment/Plan Assessment/Plan ASSESSMENT syncope acute encephalopathy hx of CAD with stent thalamic pain syndrome lumbar radiculopathy DM diabetic nephropathy hypothyroidism mixed hyperlipidemia HTN Anemia hx of CVA PLAN OF CARE transferred to [place] floor CT head ni acute intracranial pathology Venous Duplex BLE negative ECHO with EF 65-70% and RVSP of 6, significant LVH troponin x 2 negative, ECG no ST changes, no evidence of acute OK, no arrhythmia pro BNP 1270 Lipid panel with elevated TG, borderline LDL carotid Duplex orthostatic VS hari continue ASA and Plavix TSH WNL, continue current dose of Levothyroxine BS management with SS of insulin, HgA1c - 7.0- at goal monitor HH, iron panel stable PT/OT continue continue Neurontin, Lyrica need short term placement for PT/OT dc planning case discussed and evaluated by supervising physician Subjective Allergies: Coded Allergies: NO KNOWN ALLERGIES (Unverified Allergy, Unknown, 04/28/15) Subjective afebrile, no leukocytosis denies blackouts, dizziness no CP, no SOB Objective Last 24 Hour Vital Signs Date Time Temp Pulse Resp B/P Pulse Ox O2 Delivery O2 Flow Rate FiO2 04/30/16 11:49 97.7 99 15 155/89 97 Room Air 04/30/16 10:03 108 140/95 04/30/16 10:01 140/95 04/30/16 10:01 140/95 04/30/16 08:59 104 108 109 04/30/16 08:02 97.9 104 18 151/82 100 Room Air 04/30/16 07:00 102 18 Room Air 21 04/30/16 04:00 97.7 104 20 144/84 95 Room Air 04/30/16 00:00 97.9 100 20 155/90 97 Room Air 04/29/16 21:30 160/100 04/29/16 20:55 96 20 Room Air 21 04/29/16 20:01 97.7 104 18 145/90 96 Room Air 04/29/16 16:00 97.2 110 14 134/91 99 Room Air Intake and Output 04/29/16 04/30/16 19:00 07:00 Intake Total 240 ml 761 ml Output Total 200 ml 450 ml Balance 40 ml 311 ml Intake Oral 240 ml 710 ml IV Total 51 ml Output Urine Total 200 ml 450 ml # Voids 3 General Appearance: no acute distress, other - A/A/O x 3 obese AA female in NAD HEENT: normocephalic, atraumatic, anicteric, mucous membranes moist Respiratory/Chest: lungs clear, no respiratory distress, no accessory muscle use Cardiovascular: normal peripheral pulses, normal rate, regular rhythm Abdomen: normal bowel sounds, soft, non tender - obese Genitourinary: normal external genitalia Extremities: no edema Skin: no rash Neurologic/Psychiatric: abnormal gait - unsteady, alert, responsive, normal mood/affect Musculoskeletal: normal muscle bulk Microbiology Date/Time Source Procedure Growth Status 04/27/16 19:52 Urine,Clean Catch Urine Culture - Preliminary Escherichia Coli Streptococcus Species Resulted Current Medications Medications (Trade) Dose Ordered Sig/Sky Route PRN Reason Start Time Stop Time Status Last Admin Dose Admin Acetaminophen (Tylenol) 650 mg Q4H PRN ORAL FEVER 04/29/16 17:45 05/29/16 17:44 Albuterol/ Ipratropium (DuoNeb 0.5-3(2.5)mg/3ml) 3 ml Q4H PRN HHN Shortness of Breath 04/29/16 17:45 05/04/16 17:44 Amlodipine Besylate (Norvasc) 10 mg DAILY ORAL 04/30/16 09:00 05/30/16 08:59 04/30/16 10:03 Aspirin (Ecotrin) 81 mg DAILY ORAL 04/30/16 09:00 05/30/16 08:59 04/30/16 09:59 Benazepril HCl (Lotensin) 40 mg DAILY ORAL 04/30/16 09:00 05/30/16 08:59 04/30/16 10:01 Clopidogrel Bisulfate (Plavix) 75 mg DAILY ORAL 04/30/16 09:00 05/30/16 08:59 04/30/16 09:59 Dextrose (Dextrose 50%) STAT PRN IV Hypoglycemia 04/29/16 17:45 05/29/16 17:44 Diltiazem HCl (Cardizem) 10 mg Q1H PRN IV HR>120 04/29/16 17:45 05/29/16 17:44 Duloxetine HCl (Cymbalta) 60 mg DAILY ORAL 04/30/16 09:00 05/30/16 08:59 04/30/16 10:01 Enalaprilat (Vasotec) 2.5 mg Q6H PRN IV SBP >160 04/29/16 21:45 05/29/16 21:44 Ferrous Sulfate (Feosol) 325 mg BID ORAL 04/29/16 18:00 05/29/16 17:59 04/30/16 10:18 Gabapentin (Neurontin) 200 mg THREE TIMES A DAY ORAL 04/29/16 18:00 05/29/16 17:59 04/30/16 13:32 Heparin Sodium (Porcine) (Heparin 5000 units/ml) 5,000 units EVERY 8 HOURS SUBQ 04/29/16 22:00 05/29/16 21:59 04/30/16 13:37 Hydralazine HCl (Apresoline) 25 mg BID@0900,2100 ORAL 04/29/16 21:00 05/29/16 20:59 04/30/16 10:01 Hydromorphone HCl/ Sodium Chloride (Dilaudid/Sodium Chloride 50ml bag) 51 ml @ 200 mls/hr Q4H PRN IVPB severe pain 04/29/16 18:00 05/06/16 17:59 04/30/16 10:12 Insulin Aspart (NovoLOG) BEFORE MEALS AND HS SUBQ 04/29/16 21:00 05/29/16 20:59 04/30/16 12:12 Levothyroxine Sodium (Synthroid) 50 mcg DAILY@0630 ORAL 04/30/16 06:30 05/30/16 06:29 04/30/16 06:51 Nitroglycerin (Ntg) 0.4 mg Q5M PRN SL Prn Chest Pain 04/29/16 17:35 05/29/16 17:34 Ondansetron HCl (Zofran) 4 mg Q6H PRN IVP Nausea & Vomiting 04/29/16 18:00 05/29/16 17:59 Pantoprazole (Protonix) 40 mg DAILY ORAL 04/30/16 09:00 05/30/16 08:59 04/30/16 09:59 Polyethylene Glycol (Miralax) 17 gm DAILYPRN PRN ORAL Constipation 04/29/16 19:00 05/29/16 18:59 Pregabalin (Lyrica) 25 mg THREE TIMES A DAY ORAL 04/29/16 18:00 05/29/16 17:59 04/30/16 13:33 Sucralfate (Carafate) 1 gm FOUR TIMES A DAY ORAL 04/29/16 18:00 05/29/16 17:59 04/30/16 13:36 Temazepam (Restoril) 15 mg HSPRN PRN ORAL Insomnia 04/29/16 19:30 05/06/16 19:29 04/30/16 00:57 [facility] ([facility])Daysi NP Apr 30, 2016 15:20
[2016-04-30] MEDS ORDERED: Norco 5mg/325mg tab ORAL PRN (15:30)
[2016-04-30 16:00] VITALS: BP 130/87
[2016-04-30 20:00] VITALS: BP 115/82
[2016-05-01] VITALS: BP 148/91
[2016-05-01] MEDS: HYDROmorphone 2 MG in NS 50 ML IVPB PRN ×5 (03:19→21:47)
[2016-05-01 04:00] VITALS: BP 151/97
[2016-05-01] MEDS: NovoLOG Insulin Flexpen SUBQ SCH ×4 (06:21→21:56)
[2016-05-01] MEDS: Heparin 5000 units/ml inj SUBQ SCH ×3 (06:23→21:57)
[2016-05-01 07:55] VITALS: BP 143/83
[2016-05-01] MEDS: Sucralfate 1gm tab ORAL SCH ×4 (09:19→21:51)
[2016-05-01] MEDS: Lyrica 25mg cap ORAL SCH ×3 (09:19→17:46)
[2016-05-01] MEDS: Aspirin EC 81mg tab ORAL SCH (09:20)
[2016-05-01] MEDS: DULoxetine 30mg cap ORAL SCH (09:20)
[2016-05-01] MEDS: HydrALAZINE 25mg tab ORAL SCH ×2 (09:21→21:51)
--- NOTE | 2016-05-01 10:33 | Diagnostic Imaging Report ---
Indications: Chest pain, syncope Technique: Portable AP chest Findings: Comparison: 08/19/15 Cardiac silhouette remains normal in size. Pulmonary vasculature remains within normal limits. Lungs and pleura remain clear. Mild calcification and elongation of the aortic arch, neck base surgical clips, left humeral fixation hardware again noted. IMPRESSION: No evidence of acute disease, unchanged Stable chronic changes as described
--- NOTE | 2016-05-01 11:50 | Infectious Diseases Prog Note ---
Assessment/Plan Assessment/Plan A: The patient is a 61-year-old female with no evidence of sepsis no evidence of UTI UCX: EColi and Enteroc. ( Colonizer ) no dysuria , UA : No sig WBC History of ESBL E. coli urinary tract infection. Cxray : NAPD SP loss of consciousness Diabetes History of CAD. History of CVA. History of COPD. Hypertension. Diverticulosis. History of laparoscopic cholecystectomy. PLAN: monitor the patient off of antibiotics. Monitor white blood cells. Monitor CBC and BMP. Subjective Allergies: Coded Allergies: NO KNOWN ALLERGIES (Unverified Allergy, Unknown, 04/28/15) Subjective afebrile , no dysuria Objective Vital Signs Last 24 Hour Vital Signs Date Time Temp Pulse Resp B/P Pulse Ox O2 Delivery O2 Flow Rate FiO2 05/01/16 09:21 143/83 05/01/16 09:21 100 143/83 05/01/16 09:20 143/83 05/01/16 08:02 102 20 Room Air 21 05/01/16 07:55 98.1 100 18 143/83 96 Room Air 05/01/16 05:45 109 97 05/01/16 04:00 96.5 109 20 151/97 97 Room Air 05/01/16 03:49 96.3 05/01/16 00:00 96.3 63 20 148/91 95 Room Air 04/30/16 22:13 100 18 Room Air 21 04/30/16 21:00 115/82 04/30/16 20:00 97.7 100 20 115/82 98 Room Air 04/30/16 16:00 97.3 102 20 130/87 100 Room Air Height (Feet): 5 Height (Inches): 3.00 Weight (Pounds): 244 HEENT: atraumatic Respiratory/Chest: normal breath sounds Cardiovascular: normal rate Abdomen: soft, non tender Current Medications Medications (Trade) Dose Ordered Sig/Sky Route PRN Reason Start Time Stop Time Status Last Admin Dose Admin Acetaminophen (Tylenol) 650 mg Q4H PRN ORAL FEVER 04/29/16 17:45 05/29/16 17:44 Acetaminophen/ Hydrocodone Bitart ([place] 5/325) 1 tab Q6H PRN ORAL moderate pain 04/30/16 15:30 05/07/16 15:29 Albuterol/ Ipratropium (DuoNeb 0.5-3(2.5)mg/3ml) 3 ml Q4H PRN HHN Shortness of Breath 04/29/16 17:45 05/04/16 17:44 Amlodipine Besylate (Norvasc) 10 mg DAILY ORAL 04/30/16 09:00 05/30/16 08:59 05/01/16 09:21 Aspirin (Ecotrin) 81 mg DAILY ORAL 04/30/16 09:00 05/30/16 08:59 05/01/16 09:20 Benazepril HCl (Lotensin) 40 mg DAILY ORAL 04/30/16 09:00 05/30/16 08:59 05/01/16 09:20 Clopidogrel Bisulfate (Plavix) 75 mg DAILY ORAL 04/30/16 09:00 05/30/16 08:59 05/01/16 09:20 Dextrose (Dextrose 50%) STAT PRN IV Hypoglycemia 04/29/16 17:45 05/29/16 17:44 Diltiazem HCl (Cardizem) 10 mg Q1H PRN IV HR>120 04/29/16 17:45 05/29/16 17:44 Duloxetine HCl (Cymbalta) 60 mg DAILY ORAL 04/30/16 09:00 05/30/16 08:59 05/01/16 09:20 Enalaprilat (Vasotec) 2.5 mg Q6H PRN IV SBP >160 04/29/16 21:45 05/29/16 21:44 Ferrous Sulfate (Feosol) 325 mg BID ORAL 04/29/16 18:00 05/29/16 17:59 05/01/16 09:20 Gabapentin (Neurontin) 200 mg THREE TIMES A DAY ORAL 04/29/16 18:00 05/29/16 17:59 05/01/16 09:21 Heparin Sodium (Porcine) (Heparin 5000 units/ml) 5,000 units EVERY 8 HOURS SUBQ 04/29/16 22:00 05/29/16 21:59 05/01/16 06:23 Hydralazine HCl (Apresoline) 25 mg BID@0900,2100 ORAL 04/29/16 21:00 05/29/16 20:59 05/01/16 09:21 Hydromorphone HCl/ Sodium Chloride (Dilaudid/Sodium Chloride 50ml bag) 51 ml @ 200 mls/hr Q4H PRN IVPB severe pain 04/29/16 18:00 05/06/16 17:59 05/01/16 09:21 Insulin Aspart (NovoLOG) BEFORE MEALS AND HS SUBQ 04/29/16 21:00 05/29/16 20:59 05/01/16 06:21 Levothyroxine Sodium (Synthroid) 50 mcg DAILY@0630 ORAL 04/30/16 06:30 05/30/16 06:29 05/01/16 06:24 Nitroglycerin (Ntg) 0.4 mg Q5M PRN SL Prn Chest Pain 04/29/16 17:35 05/29/16 17:34 Ondansetron HCl (Zofran) 4 mg Q6H PRN IVP Nausea & Vomiting 04/29/16 18:00 05/29/16 17:59 Pantoprazole (Protonix) 40 mg DAILY ORAL 04/30/16 09:00 05/30/16 08:59 05/01/16 09:20 Polyethylene Glycol (Miralax) 17 gm DAILYPRN PRN ORAL Constipation 04/29/16 19:00 05/29/16 18:59 Pregabalin (Lyrica) 25 mg THREE TIMES A DAY ORAL 04/29/16 18:00 05/29/16 17:59 05/01/16 09:19 Sucralfate (Carafate) 1 gm FOUR TIMES A DAY ORAL 04/29/16 18:00 05/29/16 17:59 05/01/16 09:19 Temazepam (Restoril) 15 mg HSPRN PRN ORAL Insomnia 04/29/16 19:30 05/06/16 19:29 04/30/16 21:02 SRUTHI TORIBIO M.D. May 01, 2016 11:50
[2016-05-01 11:54] VITALS: BP 124/78
--- NOTE | 2016-05-01 14:55 | Pulmonology Progress Note ---
Assessment/Plan Assessment/Plan ASSESSMENT syncope acute encephalopathy hx of CAD with stent thalamic pain syndrome lumbar radiculopathy DM diabetic nephropathy UTI hypothyroidism mixed hyperlipidemia HTN Anemia hx of CVA PLAN OF CARE transferred to [place] floor CT head ni acute intracranial pathology Venous Duplex BLE negative ECHO with EF 65-70% and RVSP of 6, significant LVH troponin x 2 negative, ECG no ST changes, no evidence of acute LA, no arrhythmia pro BNP 1270 Lipid panel with elevated TG, borderline LDL carotid Duplex orthostatic VS in am continue ASA and Plavix urien cx +E coli, Enterococci faecalis, afebrile, no leukocytosis will add Nitrofurantoin x5 days total TSH WNL, continue current dose of Levothyroxine BS management with SS of insulin, HgA1c - 7.0- at goal monitor HH, iron panel stable PT/OT continue continue Neurontin, Lyrica 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 add Fish oil need short term placement for PT/OT dc planning case discussed and evaluated by supervising physician Subjective Allergies: Coded Allergies: NO KNOWN ALLERGIES (Unverified Allergy, Unknown, 04/28/15) Subjective afebrile, no leukocytosis worked with PT, unsteady gait no signs of respiratory distress at rest or after activity, no chest pain Objective Last 24 Hour Vital Signs Date Time Temp Pulse Resp B/P Pulse Ox O2 Delivery O2 Flow Rate FiO2 05/01/16 14:09 97.7 05/01/16 14:09 97.7 05/01/16 14:09 97.7 05/01/16 11:54 97.7 99 16 124/78 96 Room Air 05/01/16 09:21 143/83 05/01/16 09:21 100 143/83 05/01/16 09:20 143/83 05/01/16 08:02 102 20 Room Air 21 05/01/16 07:55 98.1 100 18 143/83 96 Room Air 05/01/16 05:45 109 97 05/01/16 04:00 96.5 109 20 151/97 97 Room Air 05/01/16 00:00 96.3 63 20 148/91 95 Room Air 04/30/16 22:13 100 18 Room Air 21 04/30/16 21:00 115/82 04/30/16 20:00 97.7 100 20 115/82 98 Room Air 04/30/16 16:00 97.3 102 20 130/87 100 Room Air Intake and Output 04/30/16 05/01/16 19:00 07:00 Intake Total 1051 ml 662 ml Output Total 400 ml 450 ml Balance 651 ml 212 ml Intake Oral 1000 ml 560 ml IV Total 51 ml 102 ml Output Urine Total 400 ml 450 ml Objective General Appearance: no acute distress, other - A/A/O x 3 obese AA female in NAD HEENT: normocephalic, atraumatic, anicteric, mucous membranes moist Respiratory/Chest: lungs clear, no respiratory distress, no accessory muscle use Cardiovascular: normal peripheral pulses, normal rate, regular rhythm Abdomen: normal bowel sounds, soft, non tender - obese Genitourinary: normal external genitalia Extremities: no edema Skin: no rash Neurologic/Psychiatric: abnormal gait - unsteady, alert, responsive, normal mood/affect Musculoskeletal: normal muscle bulk Current Medications Medications (Trade) Dose Ordered Sig/Sky Route PRN Reason Start Time Stop Time Status Last Admin Dose Admin Acetaminophen (Tylenol) 650 mg Q4H PRN ORAL FEVER 04/29/16 17:45 05/29/16 17:44 Acetaminophen/ Hydrocodone Bitart ([employer] 5/325) 1 tab Q6H PRN ORAL moderate pain 04/30/16 15:30 05/07/16 15:29 Albuterol/ Ipratropium (DuoNeb 0.5-3(2.5)mg/3ml) 3 ml Q4H PRN HHN Shortness of Breath 04/29/16 17:45 05/04/16 17:44 Amlodipine Besylate (Norvasc) 10 mg DAILY ORAL 04/30/16 09:00 05/30/16 08:59 05/01/16 09:21 Aspirin (Ecotrin) 81 mg DAILY ORAL 04/30/16 09:00 05/30/16 08:59 05/01/16 09:20 Benazepril HCl (Lotensin) 40 mg DAILY ORAL 04/30/16 09:00 05/30/16 08:59 05/01/16 09:20 Clopidogrel Bisulfate (Plavix) 75 mg DAILY ORAL 04/30/16 09:00 05/30/16 08:59 05/01/16 09:20 Dextrose (Dextrose 50%) STAT PRN IV Hypoglycemia 04/29/16 17:45 05/29/16 17:44 Diltiazem HCl (Cardizem) 10 mg Q1H PRN IV HR>120 04/29/16 17:45 05/29/16 17:44 Duloxetine HCl (Cymbalta) 60 mg DAILY ORAL 04/30/16 09:00 05/30/16 08:59 05/01/16 09:20 Enalaprilat (Vasotec) 2.5 mg Q6H PRN IV SBP >160 04/29/16 21:45 05/29/16 21:44 Ferrous Sulfate (Feosol) 325 mg BID ORAL 04/29/16 18:00 05/29/16 17:59 05/01/16 09:20 Gabapentin (Neurontin) 200 mg THREE TIMES A DAY ORAL 04/29/16 18:00 05/29/16 17:59 05/01/16 13:38 Heparin Sodium (Porcine) (Heparin 5000 units/ml) 5,000 units EVERY 8 HOURS SUBQ 04/29/16 22:00 05/29/16 21:59 05/01/16 13:41 Hydralazine HCl (Apresoline) 25 mg BID@0900,2100 ORAL 04/29/16 21:00 05/29/16 20:59 05/01/16 09:21 Hydromorphone HCl/ Sodium Chloride (Dilaudid/Sodium Chloride 50ml bag) 51 ml @ 200 mls/hr Q4H PRN IVPB severe pain 04/29/16 18:00 05/06/16 17:59 05/01/16 13:39 Insulin Aspart (NovoLOG) BEFORE MEALS AND HS SUBQ 04/29/16 21:00 05/29/16 20:59 05/01/16 12:24 Levothyroxine Sodium (Synthroid) 50 mcg DAILY@0630 ORAL 04/30/16 06:30 05/30/16 06:29 05/01/16 06:24 Nitroglycerin (Ntg) 0.4 mg Q5M PRN SL Prn Chest Pain 04/29/16 17:35 05/29/16 17:34 Ondansetron HCl (Zofran) 4 mg Q6H PRN IVP Nausea & Vomiting 04/29/16 18:00 05/29/16 17:59 Pantoprazole (Protonix) 40 mg DAILY ORAL 04/30/16 09:00 05/30/16 08:59 05/01/16 09:20 Polyethylene Glycol (Miralax) 17 gm DAILYPRN PRN ORAL Constipation 04/29/16 19:00 05/29/16 18:59 Pregabalin (Lyrica) 25 mg THREE TIMES A DAY ORAL 04/29/16 18:00 05/29/16 17:59 05/01/16 13:38 Sucralfate (Carafate) 1 gm FOUR TIMES A DAY ORAL 04/29/16 18:00 05/29/16 17:59 05/01/16 13:38 Temazepam (Restoril) 15 mg HSPRN PRN ORAL Insomnia 04/29/16 19:30 05/06/16 19:29 04/30/16 21:02 [facility] ([facility])Daysi NP May 01, 2016 14:55
[2016-05-01 16:00] VITALS: BP 135/85
[2016-05-01] MEDS ORDERED: NS 275ml ONE (16:57)
[2016-05-01] MEDS ORDERED: Tubing IV Secondary IV ONE (16:57)
[2016-05-01 20:00] VITALS: BP 139/78
[2016-05-02] VITALS (7 sets, daily range): BP systolic 134–159; BP diastolic 83–99
[2016-05-02] MEDS: HYDROmorphone 2 MG in NS 50 ML IVPB PRN ×5 (01:51→18:39)
[2016-05-02] MEDS: Nitrofurantoin 50mg cap ORAL SCH ×3 (05:58→17:25)
[2016-05-02] MEDS: Heparin 5000 units/ml inj SUBQ SCH ×2 (06:07→13:23)
[2016-05-02] MEDS: NovoLOG Insulin Flexpen SUBQ SCH ×4 (06:09→21:41)
[2016-05-02 08:22] LABS: BASOPHILS % (AUTO) 1.5 % (0.0-2.0); EOSINOPHILS % (AUTO) 3.5 % (0.0-3.0); LYMPHOCYTES % (AUTO) 29.4 % (20.0-45.0); MEAN CORPUSCULAR HEMOGLOBIN 26.4 PG (27.0-31.0); MEAN CORPUSCULAR HGB CONC 29.7 G/DL (32.0-36.0); MEAN CORPUSCULAR VOLUME 89 FL (80-99); MEAN PLATELET VOLUME 6.7 FL (6.5-10.1); MONOCYTES % (AUTO) 6.3 % (1.0-10.0); NEUTROPHILS % (AUTO) 59.3 % (45.0-75.0); PLATELET COUNT 274 K/UL (150-450); RED BLOOD COUNT 3.67 M/UL (4.20-5.40); RED CELL DISTRIBUTION WIDTH 14.1 % (11.6-14.8); WHITE BLOOD COUNT 8.9 K/UL (4.8-10.8)
[2016-05-02 08:50] LABS: ANION GAP 15 (5-15); CALCIUM 9.2 mg/dL (8.6-10.2); CARBON DIOXIDE 23 mEQ/L (20-30); CHLORIDE 98 mEQ/L (98-107); CREATININE 0.7 mg/dL (0.5-0.9); GLOMERULAR FILTRATION RATE > 60 mL/min (>60); HEMOLYSIS 23; POTASSIUM 4.3 mEQ/L (3.4-4.9); SODIUM 136 mEQ/L (135-145)
[2016-05-02] MEDS: Aspirin EC 81mg tab ORAL SCH (10:16)
[2016-05-02] MEDS: HydrALAZINE 25mg tab ORAL SCH ×2 (10:17→21:40)
[2016-05-02] MEDS: Sucralfate 1gm tab ORAL SCH ×4 (10:17→21:40)
[2016-05-02] MEDS: Lyrica 25mg cap ORAL SCH ×3 (10:17→17:25)
[2016-05-02] MEDS: DULoxetine 30mg cap ORAL SCH (10:19)
--- NOTE | 2016-05-02 16:55 | Infectious Diseases Prog Note ---
Assessment/Plan Assessment/Plan ASSESSMENT: 61-year-old female with: no evidence of sepsis - afebrile without leukocytosis no evidence of UTI UCX: EColi and Enteroc. ( Colonizer ) no dysuria , UA : No sig WBC History of ESBL E. coli urinary tract infection. Cxray : NAPD SP loss of consciousness Diabetes History of CAD. History of CVA. History of COPD. Hypertension. Diverticulosis. NKDA Full Code PLAN: ok to DC on macrobid d# / 3 from ID standpoint f/u final cultures monitor CBC, temperatures monitor BMP Subjective Allergies: Coded Allergies: NO KNOWN ALLERGIES (Unverified Allergy, Unknown, 04/28/15) Subjective afebrile noted started on macrobid Objective Vital Signs Last 24 Hour Vital Signs Date Time Temp Pulse Resp B/P Pulse Ox O2 Delivery O2 Flow Rate FiO2 05/02/16 16:03 97.0 98 18 146/94 98 Room Air 05/02/16 14:58 97.7 05/02/16 14:21 97.7 05/02/16 14:21 97.7 05/02/16 12:00 98.6 99 18 134/85 97 Room Air 05/02/16 10:18 139/83 05/02/16 10:17 139/83 05/02/16 10:17 100 139/83 05/02/16 08:00 97.7 100 22 139/83 98 Room Air 05/02/16 05:44 100 103 05/02/16 04:00 98.4 102 21 134/87 94 Room Air 05/02/16 00:00 98.1 101 20 154/99 92 Room Air 05/01/16 21:51 139/78 05/01/16 20:00 97.9 89 20 139/78 95 Nasal Cannula 2.0 05/01/16 19:21 97 20 Room Air 21 Height (Feet): 5 Height (Inches): 3.00 Weight (Pounds): 244 General Appearance: no acute distress Respiratory/Chest: no respiratory distress Cardiovascular: normal rate, regular rhythm Abdomen: normal bowel sounds, soft, non tender, non distended Laboratory Tests Test 05/02/16 07:15 White Blood Count 8.9 K/UL (4.8-10.8) Red Blood Count 3.67 M/UL (4.20-5.40) L Hemoglobin 9.7 G/DL (12.0-16.0) L Hematocrit 32.7 % (37.0-47.0) L Mean Corpuscular Volume 89 FL (80-99) Mean Corpuscular Hemoglobin 26.4 PG (27.0-31.0) L Mean Corpuscular Hemoglobin Concent 29.7 G/DL (32.0-36.0) L Red Cell Distribution Width 14.1 % (11.6-14.8) Platelet Count 274 K/UL (150-450) Mean Platelet Volume 6.7 FL (6.5-10.1) Neutrophils (%) (Auto) 59.3 % (45.0-75.0) Lymphocytes (%) (Auto) 29.4 % (20.0-45.0) Monocytes (%) (Auto) 6.3 % (1.0-10.0) Eosinophils (%) (Auto) 3.5 % (0.0-3.0) H Basophils (%) (Auto) 1.5 % (0.0-2.0) Sodium Level 136 mEQ/L (135-145) Potassium Level 4.3 mEQ/L (3.4-4.9) Chloride Level 98 mEQ/L (98-107) Carbon Dioxide Level 23 mEQ/L (20-30) Anion Gap 15 (5-15) Blood Urea Nitrogen 20 mg/dL (7-23) Creatinine 0.7 mg/dL (0.5-0.9) Estimat Glomerular Filtration Rate > 60 mL/min (>60) Glucose Level 138 mg/dL (74-106) H Calcium Level 9.2 mg/dL (8.6-10.2) Current Medications Medications (Trade) Dose Ordered Sig/Sky Route PRN Reason Start Time Stop Time Status Last Admin Dose Admin Acetaminophen (Tylenol) 650 mg Q4H PRN ORAL FEVER 04/29/16 17:45 05/29/16 17:44 Acetaminophen/ Hydrocodone Bitart (Buckner 5/325) 1 tab Q6H PRN ORAL moderate pain 04/30/16 15:30 05/07/16 15:29 Albuterol/ Ipratropium (DuoNeb 0.5-3(2.5)mg/3ml) 3 ml Q4H PRN HHN Shortness of Breath 04/29/16 17:45 05/04/16 17:44 Amlodipine Besylate (Norvasc) 10 mg DAILY ORAL 04/30/16 09:00 05/30/16 08:59 05/02/16 10:17 Aspirin (Ecotrin) 81 mg DAILY ORAL 04/30/16 09:00 05/30/16 08:59 05/02/16 10:16 Benazepril HCl (Lotensin) 40 mg DAILY ORAL 04/30/16 09:00 05/30/16 08:59 05/02/16 10:18 Clopidogrel Bisulfate (Plavix) 75 mg DAILY ORAL 04/30/16 09:00 05/30/16 08:59 05/02/16 10:17 Dextrose (Dextrose 50%) STAT PRN IV Hypoglycemia 04/29/16 17:45 05/29/16 17:44 Diltiazem HCl (Cardizem) 10 mg Q1H PRN IV HR>120 04/29/16 17:45 05/29/16 17:44 Duloxetine HCl (Cymbalta) 60 mg DAILY ORAL 04/30/16 09:00 05/30/16 08:59 05/02/16 10:19 Enalaprilat (Vasotec) 2.5 mg Q6H PRN IV SBP >160 04/29/16 21:45 05/29/16 21:44 Ferrous Sulfate (Feosol) 325 mg BID ORAL 04/29/16 18:00 05/29/16 17:59 05/02/16 10:18 Fish Oil (Fish Oil) 1,000 mg DAILY ORAL 05/02/16 09:00 06/01/16 08:59 05/02/16 10:18 Gabapentin (Neurontin) 200 mg THREE TIMES A DAY ORAL 04/29/16 18:00 05/29/16 17:59 05/02/16 13:22 Heparin Sodium (Porcine) (Heparin 5000 units/ml) 5,000 units EVERY 8 HOURS SUBQ 04/29/16 22:00 05/29/16 21:59 05/02/16 13:23 Hydralazine HCl (Apresoline) 25 mg BID@0900,2100 ORAL 04/29/16 21:00 05/29/16 20:59 05/02/16 10:17 Hydromorphone HCl/ Sodium Chloride (Dilaudid/Sodium Chloride 50ml bag) 51 ml @ 200 mls/hr Q4H PRN IVPB severe pain 04/29/16 18:00 05/06/16 17:59 05/02/16 14:28 Insulin Aspart (NovoLOG) BEFORE MEALS AND HS SUBQ 04/29/16 21:00 05/29/16 20:59 05/02/16 12:10 Levothyroxine Sodium (Synthroid) 50 mcg DAILY@0630 ORAL 04/30/16 06:30 05/30/16 06:29 05/02/16 06:00 Nitrofurantoin (Nitrofurantoin) 50 mg Q6HR ORAL 05/02/16 06:00 05/09/16 05:59 05/02/16 12:09 Nitroglycerin (Ntg) 0.4 mg Q5M PRN SL Prn Chest Pain 04/29/16 17:35 05/29/16 17:34 Ondansetron HCl (Zofran) 4 mg Q6H PRN IVP Nausea & Vomiting 04/29/16 18:00 05/29/16 17:59 Pantoprazole (Protonix) 40 mg DAILY ORAL 04/30/16 09:00 05/30/16 08:59 05/02/16 10:17 Polyethylene Glycol (Miralax) 17 gm DAILYPRN PRN ORAL Constipation 04/29/16 19:00 05/29/16 18:59 Pregabalin (Lyrica) 25 mg THREE TIMES A DAY ORAL 04/29/16 18:00 05/29/16 17:59 05/02/16 13:22 Sucralfate (Carafate) 1 gm FOUR TIMES A DAY ORAL 04/29/16 18:00 05/29/16 17:59 05/02/16 13:21 Temazepam (Restoril) 15 mg HSPRN PRN ORAL Insomnia 04/29/16 19:30 05/06/16 19:29 05/01/16 21:50 CHARMAINE ZARCO May 02, 2016 16:55
[2016-05-02] MEDS ORDERED: NORCO 10-325 T1 EACH ORAL (19:13)
[2016-05-02] MEDS ORDERED: RESTORIL30 MG ORAL (19:15)
[2016-05-03] MEDS ORDERED: NITROFURANTOIN25 MG PO (11:56)
--- NOTE | 2016-05-03 11:58 | Discharge Summary ---
Discharge Summary Hospital Course Date of Admission Apr 27, 2016 at 19:40 Date of Discharge May 02, 2016 at 22:20 Admitting Diagnosis syncope HPI Sarah Silva is a 61 year old female who was admitted on Apr 27, 2016 at 19:40 for Syncope Hospital Course dc summary #[id number] Discharge Medications New Medications: Nitrofurantoin Macrocrystal (Nitrofurantoin) 25 Mg Capsule 50 MG PO EVERY 6 HOURS, #8 CAP Continued Medications: Amlodipine Besylate (Norvasc) 10 Mg Tab 10 MG ORAL DAILY, #30 TAB Aspirin* (Aspir 81*) 81 Mg Tablet.dr 81 MG ORAL DAILY, TAB Benazepril Hcl* (Benazepril Hcl*) 10 Mg Tablet 40 MG ORAL DAILY, #30 TAB Carisoprodol* (Soma*) 350 Mg Tablet 350 MG PO THREE TIMES A DAY, TAB Clonidine HCl (Clonidine HCl) 0.2 Mg Tab 0.2 MG PO TID, TAB Clopidogrel Bisulfate* (Plavix*) 75 Mg Tablet 75 MG ORAL DAILY, TAB Diphenhydramine Hcl* (Benadryl*) 25 Mg Capsule 25 MG ORAL Q6H PRN for Itching, #20 CAP Duloxetine Hcl* (Cymbalta*) 30 Mg Capsule.dr 30 MG ORAL DAILY, CAP Ferrous Sulfate (Feosol) 325 Mg Tablet 325 MG ORAL BID, #60 TAB Fish Oil (Fish Oil 1,000 mg Capsule) 1,000 Mg Cap 1000 MG ORAL DAILY, #30 CAP Glipizide* (Glipizide*) 5 Mg Tablet 5 MG ORAL BIDAC, #60 TAB Hydralazine HCl (Hydralazine HCl) 10 Mg Tablet 25 MG ORAL BID, #90 TAB Levothyroxine Sodium (Synthroid) 50 Mcg Tab 50 MCG ORAL DAILY, TAB Take in the morning on an empty stomach, at least 30 minutes before food. Lidocaine (Lidoderm) 700 Mg Adh..patch 1 PATCH TDERMAL DAILY, #15 PATCH Metformin Hcl* (Glucophage*) 500 Mg Tablet 500 MG ORAL TID, #90 TAB Metformin Hcl* (Metformin Hcl*) 500 Mg Tablet 500 MG ORAL TWICE A DAY, TAB Metoprolol Tartrate (Metoprolol Tartrate) 25 Mg Tab 50 MG ORAL EVERY 12 HOURS, #60 TAB Nateglinide* (Starlix*) 60 Mg Tablet 60 MG ORAL THREE TIMES A DAY, #90 TAB Nitroglycerin (Nitrostat) 0.4 Mg Subl 0.4 MG SL .Q5M X 3 DOSES PRN for Prn Chest Pain, #30 TAB Pantoprazole* (Protonix*) 40 Mg Tablet.dr 40 MG ORAL DAILY, TAB Pregabalin (Lyrica) 25 Mg Cap 25 MG ORAL THREE TIMES A DAY, #9 CAP Simvastatin (Zocor) 10 Mg Tablet 10 MG ORAL BEDTIME, TAB Sucralfate* (Carafate*) 1 Gm Tablet 1 GM ORAL FOUR TIMES A DAY, #90 TAB [Atorvastatin] () 40 MG TABLET 40 MG ORAL BEDTIME, #30 Discharge Condition Upon Discharge: improving Discharge Disposition Patient was discharged to SNF/Subacute Facility(03) Discharge Diagnoses: Pedrito (Teresana)Daysi NP May 03, 2016 11:58
--- NOTE | 2016-05-03 23:13 | Diagnostic Imaging Report ---
APPROVED REPORT CPT Code: 95925 Vascular Symptoms Syncope Doppler Spectral Velocity Analysis RightLeft BILATERAL: CCA/BULB - Imaging reveals irregular, minimal plaque in both carotid bulbs. arteries. The Doppler spectral flow analysis is within normal limits throughout the internal and external carotid arteries. VERTEBRALS - Imaging reveals both vertebral arteries to be patent, without evidence of stenosis or steal.
--- NOTE | 2016-05-04 04:58 | Discharge Summary 2 SIG ---
DATE OF ADMISSION: 04/27/2016 DATE OF DISCHARGE: 05/02/2016 REASON FOR HOSPITALIZATION: 61-year-old female with multiple medical and social issues presented to emergency department with a chief complaint of "blackouts" for several times during the past month. The patient stateed that she was seen in the emergency room few weeks ago and was discharged. There was no complaint of headache, blurry vision, nausea, or vomiting. No chest pain. No shortness of breath. No fever. No chills. She denies smoking or use of illicit street drugs. The patient admitted for evaluation of recurrent syncopal episode. ADMITTING DIAGNOSES: Include: 1. Acute encephalopathy. 2. Syncope. 3. Thalamic pain syndrome. 4. Multiple lumbar radiculopathy. HOSPITAL STAY: The patient was initially on telemetry floor. EKG showed no ST changes. Troponin x2 was negative, thus patient rule out for acute OH. No evidence of arrhythmia on tele. Pro BNP was 1270. Echocardiogram revealed preserved ejection fraction of 65% to 70%, right ventricular systolic pressure of 6, and significant left ventricular hypertrophy. CT of the head revealed no acute intracranial pathology. Venous duplex bilateral lower extremities was negative. Lipid panel revealed elevated triglycerides and borderline LDL. Fish oil was added to existing regimen. The patient has no known seizure disorders. No orthostatic changes. The patient was transferred to Med/Surg floor to continue aspirin and Plavix. The patient was afebrile. No leukocytosis. No evidence of sepsis. Chest x-ray was negative. Urine culture was positive for Enterococcus faecalis and E. coli. Per Infectious Disease doctor, who was involved in the care of this patient, urine is colonized, started on Macrobid for total of three days only. TSH within normal limits. Continue current dose of levothyroxine. Blood sugar was managed with sliding scale of insulin. Hemoglobin A1c is 7 -at goal. Hemoglobin and hematocrit stable. No trend down. Iron panel stable. The patient was working with physical and occupational therapy. Neurontin and Lyrica continues as adjunctive therapy for pain management. The patient was counseled on cardiac diabetic low-fat diet. The patient needed a short-term placement to snf facility for physical and occupational therapy. Arrangements were made. The patient was stable for discharge. Syncope most likely of vasovagal cause, no cardiac or neuro causes. DISCHARGE MEDICATIONS: See medication reconciliation list. DISCHARGE INSTRUCTIONS: The patient will follow up with medical doctor at the facility. Closely monitor for any recurrence of syncope. DISCHARGE DIAGNOSES: Include: 1. Acute encephalopathy, resolved. 2. Syncope likely vasovagal. 3. History of coronary artery disease with stent. 4. Thalamic pain syndrome. 5. Lumbar radiculopathy. 6. Diabetes mellitus. 7. Diabetic nephropathy. 8. Hypothyroidism. 9. Mixed hyperlipidemia. 10. Hypertension. 11. Anemia. 12. History of cerebrovascular accident. Jd Ramirez M.D. [facility]: KODI JOB#: [id number] CC: ANNIE
--- NOTE | 2016-05-10 16:09 | Diagnostic Imaging Report ---
APPROVED REPORT CPT Code: 78125 Present Symptoms Lower Extremity Pain: Right BILATERAL: Imaging reveals a patent deep venous system bilaterally. There is no evidence of thrombus within the femoral, popliteal or tibial segments. The greater saphenous veins are also within normal limits. Doppler indicates normal spontaneous flow within these segments.
--- NOTE | 2016-05-10 16:13 | Cardiology Report ---
APPROVED REPORT EKG Measurement Heart [id number] Normal sinus rhythm Normal ECG
== END 2016-05-02 22:20 | DRG 52 ==
LOC: EMR 18:40 → 2E 19:40 → EDBEDREQ 19:59 → 4E 04-29 17:58
DX: G93.40 Encephalopathy, unspecified (principal); E11.21 Type 2 diabetes mellitus with diabetic nephropathy; G89.0 Central pain syndrome; M54.16 Radiculopathy, lumbar region; R55 Syncope and collapse; I25.10 Atherosclerotic heart disease of native coronary artery without angina pectoris; Z95.5 Presence of coronary angioplasty implant and graft; E03.9 Hypothyroidism, unspecified; E78.2 Mixed hyperlipidemia; I10 Essential (primary) hypertension; D64.9 Anemia, unspecified; Z86.73 Personal history of transient ischemic attack (TIA), and cerebral infarction without residual deficits; J44.9 Chronic obstructive pulmonary disease, unspecified; K57.90 Diverticulosis of intestine, part unspecified, without perforation or abscess without bleeding
CPT/HCPCS: 36415; 70450; 71010; 80048; 80053; 80061; 81003; 82550; 82553; 82728; 82962; 83036; 83540; 83550; 83880; 84443; 84484; 85025; 85610; 85730; 86140; 87086; 87181; 93005; 93306; 93880; 93970; 94664; J1815